=== PATIENT | male | born 1985 | race Caucasian/White ===

== ENCOUNTER 2021-08-10 13:19 | Emergency (ER) | payer OTHER, SELFPAY ==
[2021-08-10 13:25] VITALS: BP 154/91; PULSE 81; RESP 18; TEMP 36.7; O2SAT 98; BMI 31.8
--- NOTE | 2021-08-10 13:32 | DI.RAD.S_ITS ---
PROCEDURE: XR CHEST 1V INDICATIONS: chest pain TECHNIQUE: One view of the chest was acquired. COMPARISON: None. FINDINGS: Surgical changes and devices: None. Lungs and pleura: Lungs are clear. No pleural effusions or pneumothorax. Mediastinum: Mediastinal contours appear normal. Heart size is normal. Bones and chest wall: No suspicious bony lesions. Overlying soft tissues appear unremarkable. IMPRESSION: No acute cardiopulmonary disease. Dictated by: Toro Coelho M.D. on 08/10/2021 at 14:13 Approved by: Toro Coehlo M.D. on 08/10/2021 at 14:13
[2021-08-10 14:04] LABS: Add Manual Diff / Slide Review NO; Basophils Absolute Auto 100 /uL (0-100); Basophils Percent Auto 0.6 % (0-2); Eosinophils Absolute Auto 300 /uL (0-450); Hematocrit 48.8 % (41-53); Hemoglobin 17.8 g/dL (13.5-17.5); Lymphocytes Absolute Auto 1800 /uL (1100-4500); Lymphocytes Percent Auto 19.9 % (25-40); Mean Corpuscular HGB Conc 36.5 % (30-36); Mean Corpuscular Hemoglobin 32.6 PG (26-34); Mean Corpuscular Volume 89.3 fL (80-100); Monocytes Absolute Auto 600 /uL (0-900); Monocytes Percent Auto 6.4 % (3-14); Neutrophils Absolute Auto 6500 /uL (1500-7000); Neutrophils Percent Auto 70.1 % (50-75); Platelet Count 237 X10^3/uL (150-400); Red Blood Cell Count 5.47 X10^6/uL (4.5-5.9); Red Cell Distribution Width 12.8 % (11.6-14.8); White Blood Cell Count 9.2 X10^3/uL (4.5-11.0)
[2021-08-10 14:14] LABS: Alanine Aminotransferase 49 IU/L (<50); Albumin 5.5 g/dL (3.5-5.0); Albumin Globulin Ratio 1.3 (1.0-2.8); Alkaline Phosphatase 77 U/L (38-126); Aspartate Aminotransferase 36 IU/L (17-59); BUN Creatinine Ratio 10.9 (6-22); Bilirubin Total 0.7 mg/dL (0.2-1.3); Blood Urea Nitrogen 10 mg/dL (9-20); Calcium 9.7 mg/dL (8.4-10.2); Carbon Dioxide 26 mmol/L (22-32); Chloride 103 mmol/L (98-107); Creatine Kinase 59 U/L (55-170); Estimated Glomerular Filt Rate > 60.0 mL/min (>60); Globulin 4.4 g/dL (1.7-4.1); Glucose 118 mg/dL (70-100); HEMOLYSIS < 15 (0-50); Lipase 462 U/L (23-300); Magnesium 2.1 mg/dL (1.6-2.3); Sodium 140 mmol/L (137-145)
[2021-08-10 14:23] LABS: Total Protein 9.9 g/dL (6.3-8.2)
[2021-08-10 14:25] LABS: Troponin I < 0.012 ng/mL (0.01-0.034)
--- NOTE | 2021-08-10 15:01 | ED_ITS ---
HPI - Arrhythmia/Palpitations General Chief Complaint: Arrhythmia/Palpitations Stated Complaint: HEART FLUTTERING Time Seen by Provider: 08/10/21 14:42 Source: patient Mode of arrival: Ambulatory History of Present Illness HPI narrative: Patient is a 35-year-old male who states that since last evening and continued until today he has had occasional episodes of feeling like his heart is fluttering. He states that his watch that he is wearing informed him that his heart was beating fast he was having symptoms at the time. Some lighthe adedness. Did not pass out. No chest pain. No shortness of breath. Does have a history of anxiety and he states that the symptoms are causing him to have some anxiety. Related Data Allergies Allergy/AdvReac Type Severity Reaction Status Date / Time No Known Drug Allergies Allergy Verified 08/10/21 13:32 Review of Systems Cardiovascular Cardiovascular: Reports as per HPI and Reports system reviewed and no additional complaints, except as documented Respiratory Respiratory: Reports as per HPI and Reports system reviewed and no additional complaints, except as documented Gastrointestinal Gastrointestinal: Reports system reviewed and no additional complaints, except as documented Musculoskeletal Musculoskeletal: Reports system reviewed and no additional complaints, except as documented Integumentary/Breasts Skin/Breast: Reports system reviewed and no additional complaints, except as documented Hematologic/Lymphatic On Anticoagulants: No Patient History Medical History Anxiety Social History Smoking Status: Former smoker Smoking Status: Former smoker alcohol intake frequency: holidays/special occasions only Substance Use Type: does not use Exam Initial Vital Signs Initial Vital Signs: Vital Signs Temperature 98.1 F 08/10/21 13:25 Pulse Rate 81 08/10/21 13:25 Respiratory Rate 18 08/10/21 13:25 Blood Pressure 154/91 H 08/10/21 13:25 Pulse Oximetry 98 08/10/21 13:25 HENMT Head: normal to inspection and normocephalic Resp Effort & Inspection: normal respiratory effort Auscultation: clear to auscultation bilaterally Cardio Rate: regular rate Rhythm: regular rhythm GI Inspection: normal to inspection Skin General: no rashes or lesions noted Neuro General: patient alert, patient awake, patient oriented x3 and moves all extremities Extrem General: normal to inspection and capillary refill normal Psych Appearance: grossly normal and well kempt Course Orders Ordered: ED Orders 08/10/21 13:32 XR chest 1V Stat 08/10/21 13:41 EKG-12 Lead Stat 08/10/21 13:50 Complete Blood Count AUTO DIFF Stat Comprehensive Metabolic Panel Stat Lipase Stat Magnesium Stat Troponin & CK Cardiac Panel Stat Vital Signs Vital signs: Vital Signs - 8 hr 08/10/21 13:25 08/10/21 15:03 08/10/21 15:05 Temperature 98.1 F Pulse Rate 81 77 78 Respiratory Rate 18 11 L 12 Blood Pressure 154/91 H 169/93 H Pulse Oximetry 98 08/10/21 15:20 08/10/21 15:30 Temperature Pulse Rate 64 69 Respiratory Rate 12 12 Blood Pressure 156/83 H Pulse Oximetry MDM - Arrhythmia/Palpitations Lab Data Attestation: I reviewed the patient's lab results. Result diagrams: 08/10/21 13:50 08/10/21 13:50 Labs: Lab Results 08/10/21 08/10/21 Range/Units 13:50 13:50 WBC 9.2 (4.5-11.0) X10^3/uL RBC 5.47 (4.5-5.9) X10^6/uL Hgb 17.8 H (13.5-17.5) g/dL Hct 48.8 (41-53) % MCV 89.3 (80-100) fL MCH 32.6 (26-34) PG MCHC 36.5 H (30-36) % RDW 12.8 (11.6-14.8) % Plt Count 237 (150-400) X10^3/uL Neut % (Auto) 70.1 (50-75) % Lymph % (Auto) 19.9 L (25-40) % [place] % (Auto) 6.4 (3-14) % Eos % (Auto) 3.0 (2-4) % Baso % (Auto) 0.6 (0-2) % Neut # (Auto) 6500 (0393-2456) /uL Lymph # (Auto) 1800 (2108-3215) /uL [place] # (Auto) 600 (0-900) /uL Eos # (Auto) 300 (0-450) /uL Baso # (Auto) 100 (0-100) /uL Sodium 140 (137-145) mmol/L Potassium 4.0 (3.4-5.1) mmol/L Chloride 103 (98-107) mmol/L Carbon Dioxide 26 (22-32) mmol/L BUN 10 (9-20) mg/dL Creatinine 0.92 (0.66-1.25) mg/dL Estimated GFR > 60.0 (>60) mL/min BUN/Creatinine Ratio 10.9 (6-22) Glucose 118 H (70-100) mg/dL Calcium 9.7 (8.4-10.2) mg/dL Magnesium 2.1 (1.6-2.3) mg/dL Total Bilirubin 0.7 (0.2-1.3) mg/dL AST 36 (17-59) IU/L ALT 49 (<50) IU/L Alkaline Phosphatase 77 (38-126) U/L Total Creatine Kinase 59 (55-170) U/L CK-MB (CK-2) TNP CK-MB (CK-2) Rel Index TNP Troponin I < 0.012 (0.01-0.034) ng/mL Total Protein 9.9 H* (6.3-8.2) g/dL Albumin 5.5 H (3.5-5.0) g/dL Globulin 4.4 H (1.7-4.1) g/dL Albumin/Globulin Ratio 1.3 (1.0-2.8) Lipase 462 H (23-300) U/L Imaging Data Chest x-ray: Radiologist's Impresson: [address] [address] XRay Report Signed Patient: Justino Silver MR#: [id number] : 1985 Acct:[id number] Age/Sex: 35 / M Date of Service: 08/10/21 Loc: ED Accession Number: [id number] ?? Procedure: XR chest 1V Ordering Provider: Justino Richardson D.O. PROCEDURE:? XR CHEST 1V ? INDICATIONS:? chest pain ? TECHNIQUE:? One view of the chest was acquired.? ? COMPARISON:? None. ? FINDINGS:? ? Surgical changes and devices:? None.? ? Lungs and pleura:? Lungs are clear.? No pleural effusions or pneumothorax.? ? Mediastinum:? Mediastinal contours appear normal.? Heart size is normal.? ? Bones and chest wall:? No suspicious bony lesions.? Overlying soft tissues appear unremarkable.? ? IMPRESSION:? No acute cardiopulmonary disease. ? ? Dictated by: Toro Coelho M.D. on 08/10/2021 at 14:13 ? ? Approved by: Toro Coelho M.D. on 08/10/2021 at 14:13? ECG Data Attestation: I personally reviewed and interpreted this ECG as follows: Interpretation: Sinus rhythm Ventricular rate 89 Normal axis Normal QRS Normal QTC No ST T wave changes MDM Narrative Medical decision making narrative: Patient has had occasional PVCs however these do not seem to be associated with his symptoms. He did have symptoms while he was on the monitor and review did not show any ectopy at the time. His EKG is unremarkable. Labs unremarkable. Chest x-ray is unremarkable. Discussed with him that he needs to contact his primary doctor to discuss follow-up and a Holter monitor. He was given return precautions. He expressed understanding and agreement. Discharge Plan Departure Patient Disposition: Home Clinical Impression: Palpitations Instructions: Arrhythmias Activity Restrictions/Additional Instructions: I recommend that you continue to take all of your medications as directed. Cont act your primary doctor for a follow-up. Return to the emergency department for any new or worsening symptoms.
[2021-08-10 15:03] VITALS: PULSE 77; RESP 11
[2021-08-10 15:05] VITALS: BP 169/93; PULSE 78; RESP 12
[2021-08-10 15:20] VITALS: BP 156/83; PULSE 64; RESP 12
[2021-08-10 15:30] VITALS: PULSE 69; RESP 12
== END 2021-08-10 15:33 | disposition home or self-care (01) ==
PROVIDERS: Emergency Provider Emergency Medicine
DX: R00.2 Palpitations (principal); Z87.891 Personal history of nicotine dependence
CPT/HCPCS: 36415; 71045; 80053; 82550; 83690; 83735; 84484; 85025; 93005; 99284

== ENCOUNTER 2021-08-15 13:56 | Emergency (ER) | payer OTHER, SELFPAY ==
[2021-08-15 14:01] VITALS: BP 154/88; PULSE 102; RESP 22; TEMP 36.6; O2SAT 99; BMI 32.5
--- NOTE | 2021-08-15 14:33 | ED_ITS ---
HPI - Arrhythmia/Palpitations <Darlene Ortega [facility] - Last Filed: 08/15/21 18:51> General Chief Complaint: Arrhythmia/Palpitations Stated Complaint: Heart problems, thinks will pass out Time Seen by Provider: 08/15/21 14:11 Mode of arrival: Family Vehicle History of Present Illness HPI narrative: 35-year-old male presents to the emergency department complaining of palpitations for the last 2 weeks, BPPV, dizziness, and panic when he feels these symptoms. He states he has not been able to get into see his primary care provider Dr. Dennis yet, he was seen in the emergency department 5 days ago for palpitations, only pertinent findings on his workup appears to be mild dehydration, and an elevated lipase of 462. Patient states that he has a history of elevated lipase, denies any history of pancreatitis, denies any history of diabetes cardiac disease, hypertension or kidney disease. He states that he has some lightheadedness.? Did not pass out.? No chest pain.? No shortness of breath.? Does have a history of anxiety and he states that the symptoms are causing him to have some anxiety. 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 Patient denies taking any Flomax for his upper respiratory congestion, he has been taking citalopram 20 since his primary care provider dea stick, he has only taken 1 or 2 doses of meclizine for his BPPV. He states that he has not seen anybody from ENT or vestibular physical therapy to help him with this. Related Data Previous Rx's Medication Instructions Recorded fluticasone propionate 50 1 spray INTRANASAL DAILY #16 g 08/15/21 mcg/actuation nasal spray,suspension (Flonase Allergy Relief) hydroxyzine HCl 10 mg tablet 10 mg PO TID PRN #20 tab 08/15/21 lorazepam 1 mg tablet 1 mg PO DAILY PRN #10 tab 08/15/21 meclizine 25 mg tablet 25 mg PO DAILY PRN #20 tab 08/15/21 methylprednisolone 4 mg tablets in See Rx Instructions PO .COMPLEX 08/15/21 a dose pack (Methylpred DP) #21 ea omeprazole magnesium 20 mg 20 mg PO DAILY #30 tab 08/15/21 tablet,delayed release (Prilosec OTC) Allergies Allergy/AdvReac Type Severity Reaction Status Date / Time No Known Drug Allergies Allergy Verified 08/15/21 14:04 Review of Systems <ESPERANZA Montes De Oca - Last Filed: 08/15/21 18:51> Review of Systems Narrative: General: denies fever, chills Head/Neck: denies headache, neck pain Eyes: denies visual changes, eye pain Cardio: denies chest pain, endorses palpitations at various times, today was wh en he was sitting at his desk, he denies any syncope or feeling faint Respiratory: denies shortness of breath, cough GI: denies abdominal pain, nausea, vomiting, or diarrhea : denies dysuria, hematuria MSK: denies joint pain, muscle weakness Skin: denies rash, itching Neuro: denies numbness, tingling Patient History <ESPERANZA Montes De Oca - Last Filed: 08/15/21 18:51> Medical History Anxiety Social History Smoking Status: Former smoker Smoking Status: Former smoker alcohol intake frequency: holidays/special occasions only Substance Use Type: does not use Exam <ESPERANZA Montes De Oca - Last Filed: 08/15/21 18:51> Narrative Exam Narrative: Independently reviewed vitals signs and nursing notes. General: cooperative, comfortable, in no acute distress, well developed and well groomed Head: atraumatic, symmetrical facial expressions Neck: supple, atraumatic, without lymphadenopathy. Eyes: pupils equal round and reactive, EOMI, conjunctiva normal Nose: nares patent, no rhinorrhea Mouth/Throat: uvula midline, moist mucus membranes Cardiovascular: regular rate and rhythm, S1-S2, no extra beats, no PVCs or PACs noted on alarm security or surveillance monitor, no peripheral edema, warm extremities Respiratory: normal effort, able to speak in complete sentences, no audible wheezing, stridor, or rales. No retractions or tachypnea. GI: abdomen soft, nontender to palpation, nondistended, no masses, no exquisite tenderness with exam, without guarding or rebound. MSK: moves all extremities, ambulatory w/steady gait, neurovascularly intact, no weakness Skin: brisk capillary refill, no rash, no erythema Neuro: normal speech and cognition, A&O x3, normal tone Psych: mental status is grossly normal, he is anxious, congruent mood, normal affect, pleasant and cooperative Initial Vital Signs Initial Vital Signs: Vital Signs Temperature 98 F 08/15/21 14:01 Pulse Rate 102 H 08/15/21 14:01 Respiratory Rate 22 08/15/21 14:01 Blood Pressure 154/88 H 08/15/21 14:01 Pulse Oximetry 99 08/15/21 14:01 <Justino Richardson DO - Last Filed: 08/16/21 07:09> Initial Vital Signs Initial Vital Signs: Vital Signs Temperature 98 F 08/15/21 14:01 Pulse Rate 102 H 08/15/21 14:01 Respiratory Rate 08/15/21 14:01 Blood Pressure 154/88 H 08/15/21 14:01 Pulse Oximetry 99 08/15/21 14:01 Course <ESPERANZA Montes De Oca - Last Filed: 08/15/21 18:51> Orders Ordered: Discontinued Medications Sodium Chloride (Normal Saline 0.9%) 1,000 mls @ 1,000 mls/hr IV BOLUS ONE Stop: 08/15/21 15:13 Last Infusion: 08/15/21 16:05 Dose: 0 mls/hr Documented by: Admin: 08/15/21 14:53 Dose: 1,000 mls/hr Documented by: AMY Lorazepam (Lorazepam 0.5 Mg Tablet) 1 mg PO NOW ONE Stop: 08/15/21 14:13 Last Admin: 08/15/21 14:53 Dose: 1 mg Documented by: AMY Meclizine HCl (Meclizine Hcl 12.5 Mg Tablet) 25 mg PO NOW ONE Stop: 08/15/21 14:34 Last Admin: 08/15/21 14:53 Dose: 25 mg Documented by: AMY Vital Signs Vital signs: Vital Signs - 8 hr 08/15/21 14:01 08/15/21 15:47 08/15/21 16:06 Temperature 98 F Pulse Rate 102 H 69 62 Respiratory Rate 22 18 18 Blood Pressure 154/88 H 122/73 Pulse Oximetry 99 99 <Justino Richardson DO - Last Filed: 08/16/21 07:09> Orders Ordered: Discontinued Medications Sodium Chloride (Normal Saline 0.9%) 1,000 mls @ 1,000 mls/hr IV BOLUS ONE Stop: 08/15/21 15:13 Last Infusion: 08/15/21 16:05 Dose: 0 mls/hr Documented by: Admin: 08/15/21 14:53 Dose: 1,000 mls/hr Documented by: AMY Lorazepam (Lorazepam 0.5 Mg Tablet) 1 mg PO NOW ONE Stop: 08/15/21 14:13 Last Admin: 08/15/21 14:53 Dose: 1 mg Documented by: AMY Meclizine HCl (Meclizine Hcl 12.5 Mg Tablet) 25 mg PO NOW ONE Stop: 08/15/21 14:34 Last Admin: 08/15/21 14:53 Dose: 25 mg Documented by: AMY Vital Signs Vital signs: Vital Signs - 8 hr 08/15/21 14:01 08/15/21 15:47 08/15/21 16:06 Temperature 98 F Pulse Rate 102 H 69 62 Respiratory Rate 22 18 18 Blood Pressure 154/88 H 122/73 Pulse Oximetry 99 99 MDM - Arrhythmia/Palpitations <ESPERANZA Montes De Oca - Last Filed: 08/15/21 18:51> Lab Data Result diagrams: 08/15/21 14:38 08/15/21 14:38 Labs: Lab Results 08/15/21 08/15/21 08/15/21 Range/Units 14:38 14:38 14:38 WBC 7.4 (4.5-11.0) X10^3/uL RBC 5.11 (4.5-5.9) X10^6/uL Hgb 16.4 (13.5-17.5) g/dL Hct 45.7 (41-53) % MCV 89.4 (80-100) fL MCH 32.1 (26-34) PG MCHC 35.9 (30-36) % RDW 12.9 (11.6-14.8) % Plt Count 201 (150-400) X10^3/uL Neut % (Auto) 63.4 (50-75) % Lymph % (Auto) 24.9 L (25-40) % Bailey % (Auto) 6.9 (3-14) % Eos % (Auto) 3.9 (2-4) % Baso % (Auto) 0.9 (0-2) % Neut # (Auto) 4700 (4764-5120) /uL Lymph # (Auto) 1900 (3909-8834) /uL Bailey # (Auto) 500 (0-900) /uL Eos # (Auto) 300 (0-450) /uL Baso # (Auto) 100 (0-100) /uL Sodium 138 (137-145) mmol/L Potassium 3.8 (3.4-5.1) mmol/L Chloride 104 (98-107) mmol/L Carbon Dioxide 22 (22-32) mmol/L BUN 10 (9-20) mg/dL Creatinine 0.83 (0.66-1.25) mg/dL Estimated GFR > 60.0 (>60) mL/min BUN/Creatinine Ratio 12.0 (6-22) Glucose 108 H (70-100) mg/dL Calcium 9.4 (8.4-10.2) mg/dL Total Bilirubin 0.7 (0.2-1.3) mg/dL AST 29 (17-59) IU/L ALT 37 (<50) IU/L Alkaline Phosphatase 74 (38-126) U/L Total Creatine Kinase 57 (55-170) U/L CK-MB (CK-2) TNP CK-MB (CK-2) Rel Index TNP Troponin I < 0.012 (0.01-0.034) ng/mL Total Protein 8.6 H (6.3-8.2) g/dL Albumin 4.9 (3.5-5.0) g/dL Globulin 3.7 (1.7-4.1) g/dL Albumin/Globulin Ratio 1.3 (1.0-2.8) Lipase 173 D (23-300) U/L Urine Color Urine Appearance Urine pH (4.5-8.0) Ur Specific Clyde (1.000-1.035) Urine Protein (Negative) Urine Glucose (UA) (Negative) g/dL Urine Ketones (NEGATIVE) Urine Occult Blood (Negative) Urine Nitrate (Negative) Urine Bilirubin (NEGATIVE) Urine Urobilinogen (0.2) E.U./dL Ur Leukocyte Esterase (NEGATIVE) Urine RBC (0-5/HPF) Urine WBC (0-5/HPF) Ur Squamous Epith Cells (0-5/HPF) Urine Bacteria (None) Ur Culture Indicated? U Opiates 300ng/mL cut (Negative) Ur Oxycodone Screen (Negative) Urine Methadone Screen (Negative) Ur Barbiturates Screen (Negative) U Tricyclic Antidepress (Negative) Ur Phencyclidine Scrn (Negative) Ur Amphetamines Screen (Negative) U Methamphetamines Scrn (Negative) Ur MDMA Scrn (Ecstasy) (Negative) U Benzodiazepines Scrn (Negative) Urine Cocaine Screen (Negative) U Marijuana (THC) Screen (Negative) 08/15/21 08/15/21 Range/Units 15:38 15:38 WBC (4.5-11.0) X10^3/uL RBC (4.5-5.9) X10^6/uL Hgb (13.5-17.5) g/dL Hct (41-53) % MCV (80-100) fL MCH (26-34) PG MCHC (30-36) % RDW (11.6-14.8) % Plt Count (150-400) X10^3/uL Neut % (Auto) (50-75) % Lymph % (Auto) (25-40) % Bailey % (Auto) (3-14) % Eos % (Auto) (2-4) % Baso % (Auto) (0-2) % Neut # (Auto) (9498-1839) /uL Lymph # (Auto) (6000-5381) /uL Bailey # (Auto) (0-900) /uL Eos # (Auto) (0-450) /uL Baso # (Auto) (0-100) /uL Sodium (137-145) mmol/L Potassium (3.4-5.1) mmol/L Chloride (98-107) mmol/L Carbon Dioxide (22-32) mmol/L BUN (9-20) mg/dL Creatinine (0.66-1.25) mg/dL Estimated GFR (>60) mL/min BUN/Creatinine Ratio (6-22) Glucose (70-100) mg/dL Calcium (8.4-10.2) mg/dL Total Bilirubin (0.2-1.3) mg/dL AST (17-59) IU/L ALT (<50) IU/L Alkaline Phosphatase (38-126) U/L Total Creatine Kinase (55-170) U/L CK-MB (CK-2) CK-MB (CK-2) Rel Index Troponin I (0.01-0.034) ng/mL Total Protein (6.3-8.2) g/dL Albumin (3.5-5.0) g/dL Globulin (1.7-4.1) g/dL Albumin/Globulin Ratio (1.0-2.8) Lipase (23-300) U/L Urine Color Yellow Urine Appearance Clear Urine pH 7.0 (4.5-8.0) Ur Specific Clyde <=1.005 (1.000-1.035) Urine Protein Negative (Negative) Urine Glucose (UA) Negative (Negative) g/dL Urine Ketones Trace H (NEGATIVE) Urine Occult Blood Negative (Negative) Urine Nitrate Negative (Negative) Urine Bilirubin Negative (NEGATIVE) Urine Urobilinogen 0.2 (0.2) E.U./dL Ur Leukocyte Esterase Trace H (NEGATIVE) Urine RBC None seen (0-5/HPF) Urine WBC None seen (0-5/HPF) Ur Squamous Epith Cells None seen (0-5/HPF) Urine Bacteria None seen (None) Ur Culture Indicated? Cult not indicated U Opiates 300ng/mL cut Negative (Negative) Ur Oxycodone Screen Negative (Negative) Urine Methadone Screen Negative (Negative) Ur Barbiturates Screen Negative (Negative) U Tricyclic Antidepress Negative (Negative) Ur Phencyclidine Scrn Negative (Negative) Ur Amphetamines Screen Negative (Negative) U Methamphetamines Scrn Negative (Negative) Ur MDMA Scrn (Ecstasy) Negative (Negative) U Benzodiazepines Scrn Negative (Negative) Urine Cocaine Screen Negative (Negative) U Marijuana (THC) Screen Negative (Negative) ECG Data Interpretation: EKG reviewed by myself and Dr. Richardson and reveals normal sinus rhythm at [68] bpm with regular axis and intervals. No STEMI, ST segment changes, arrhythmia, or acute ischemic changes. MDM Narrative Medical decision making narrative: This is a 35-year-old male who presents to the emergency department for palp itations and anxiety, and ongoing dizziness from his BPPV. He states he has seasonal allergies, and has had congestion, symptoms of this, and continues to have dizziness related to his middle ear effusion on the right. He states he saw his primary care provider who increased his citalopram from 10-20 mg, he states this made him feel poorly for approximately 1 week. Today patient states that he had an anxiety attack while he was sitting at his desk today, he had the sensation of palpations, he watched his heart rhythm on his apple watch and thought that he was having an abnormal rhythm. Patient's EKG is normal sinus rhythm, without any ectopy, no ectopy visualized on alarm security or surveillance monitor while he was here either, no QT prolongation, no prolonged intervals, no ST changes. Patient was quite anxious during his emergency department visit, discussed feelings of panic attacks over the last few months. He states that he has been overly exhausted since having COVID in May. 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 Patient also endorses history of ADHD, he is not currently on any medication for this, his only medication is citalopram which is likely under treating his ADHD and anxiety. Patient also take Lunesta at nighttime, this is likely helpful. Patient endorses a history of heartburn, has not been taking any medication for this. He was given a prescription for omeprazole, fluticasone for seasonal allergy symptoms he endorsed, hydroxyzine and lorazepam for anxiety out of proportion, meclizine daily for his BPPV until he can follow up with vestibular physical therapy, and a Medrol Dosepak for his upper respiratory symptoms. Patient understands to follow-up closely with his primary care provider about these issues, he was reassured that his symptoms do not appear to be a dangerous cardiac complication. He does not have any leukocytosis, urine drug screen was negative, UA showed a trace of ketones and a trace of leukocytes for dehydr ation. Chest x-ray from 5 days ago did not show any acute abnormality. Patient does not endorse any new cardiopulmonary symptoms. Patient is appropriate and amenable to discharge home. Vital signs are stable on repeat examination is unremarkable. Patient has been informed of results. Patient has been given strict return to ER precautions for any new or worsening symptoms. Patient understands to follow up closely with outpatient providers as instructed. Patient understands plan and agrees to discharge home. All questions and concerns answered at this time. <Justino Richardson, - Last Filed: 08/16/21 07:09> Lab Data Labs: Lab Results 03/08/15/21 08/15/21 Range/Units 14:38 14:38 14:38 WBC 7.4 (4.5-11.0) X10^3/uL RBC 5.11 (4.5-5.9) X10^6/uL Hgb 16.4 (13.5-17.5) g/dL Hct 45.7 (41-53) % MCV 89.4 (80-100) fL MCH 32.1 (26-34) PG MCHC 35.9 (30-36) % RDW 12.9 (11.6-14.8) % Plt Count 201 (150-400) X10^3/uL Neut % (Auto) 63.4 (50-75) % Lymph % (Auto) 24.9 L (25-40) % Bailey % (Auto) 6.9 (3-14) % Eos % (Auto) 3.9 (2-4) % Baso % (Auto) 0.9 (0-2) % Neut # (Auto) 4700 (6625-3098) /uL Lymph # (Auto) 1900 (2923-0561) /uL Bailey # (Auto) 500 (0-900) /uL Eos # (Auto) 300 (0-450) /uL Baso # (Auto) 100 (0-100) /uL Sodium 138 (137-145) mmol/L Potassium 3.8 (3.4-5.1) mmol/L Chloride 104 (98-107) mmol/L Carbon Dioxide 22 (22-32) mmol/L BUN 10 (9-20) mg/dL Creatinine 0.83 (0.66-1.25) mg/dL Estimated GFR > 60.0 (>60) mL/min BUN/Creatinine Ratio 12.0 (6-22) Glucose 108 H (70-100) mg/dL Calcium 9.4 (8.4-10.2) mg/dL Total Bilirubin 0.7 (0.2-1.3) mg/dL AST 29 (17-59) IU/L ALT 37 (<50) IU/L Alkaline Phosphatase 74 (38-126) U/L Total Creatine Kinase 57 (55-170) U/L CK-MB (CK-2) TNP CK-MB (CK-2) Rel Index TNP Troponin I < 0.012 (0.01-0.034) ng/mL Total Protein 8.6 H (6.3-8.2) g/dL Albumin 4.9 (3.5-5.0) g/dL Globulin 3.7 (1.7-4.1) g/dL Albumin/Globulin Ratio 1.3 (1.0-2.8) Lipase 173 D (23-300) U/L Urine Color Urine Appearance Urine pH (4.5-8.0) Ur Specific Clyde (1.000-1.035) Urine Protein (Negative) Urine Glucose (UA) (Negative) g/dL Urine Ketones (NEGATIVE) Urine Occult Blood (Negative) Urine Nitrate (Negative) Urine Bilirubin (NEGATIVE) Urine Urobilinogen (0.2) E.U./dL Ur Leukocyte Esterase (NEGATIVE) Urine RBC (0-5/HPF) Urine WBC (0-5/HPF) Ur Squamous Epith Cells (0-5/HPF) Urine Bacteria (None) Ur Culture Indicated? U Opiates 300ng/mL cut (Negative) Ur Oxycodone Screen (Negative) Urine Methadone Screen (Negative) Ur Barbiturates Screen (Negative) U Tricyclic Antidepress (Negative) Ur Phencyclidine Scrn (Negative) Ur Amphetamines Screen (Negative) U Methamphetamines Scrn (Negative) Ur MDMA Scrn (Ecstasy) (Negative) U Benzodiazepines Scrn (Negative) Urine Cocaine Screen (Negative) U Marijuana (THC) Screen (Negative) 08/15/21 08/15/21 Range/Units 15:38 15:38 WBC (4.5-11.0) X10^3/uL RBC (4.5-5.9) X10^6/uL Hgb (13.5-17.5) g/dL Hct (41-53) % MCV (80-100) fL MCH (26-34) PG MCHC (30-36) % RDW (11.6-14.8) % Plt Count (150-400) X10^3/uL Neut % (Auto) (50-75) % Lymph % (Auto) (25-40) % Bailey % (Auto) (3-14) % Eos % (Auto) (2-4) % Baso % (Auto) (0-2) % Neut # (Auto) (2601-2912) /uL Lymph # (Auto) (8904-4682) /uL Bailey # (Auto) (0-900) /uL Eos # (Auto) (0-450) /uL Baso # (Auto) (0-100) /uL Sodium (137-145) mmol/L Potassium (3.4-5.1) mmol/L Chloride (98-107) mmol/L Carbon Dioxide (22-32) mmol/L BUN (9-20) mg/dL Creatinine (0.66-1.25) mg/dL Estimated GFR (>60) mL/min BUN/Creatinine Ratio (6-22) Glucose (70-100) mg/dL Calcium (8.4-10.2) mg/dL Total Bilirubin (0.2-1.3) mg/dL AST (17-59) IU/L ALT (<50) IU/L Alkaline Phosphatase (38-126) U/L Total Creatine Kinase (55-170) U/L CK-MB (CK-2) CK-MB (CK-2) Rel Index Troponin I (0.01-0.034) ng/mL Total Protein (6.3-8.2) g/dL Albumin (3.5-5.0) g/dL Globulin (1.7-4.1) g/dL Albumin/Globulin Ratio (1.0-2.8) Lipase (23-300) U/L Urine Color Yellow Urine Appearance Clear Urine pH 7.0 (4.5-8.0) Ur Specific Clyde <=1.005 (1.000-1.035) Urine Protein Negative (Negative) Urine Glucose (UA) Negative (Negative) g/dL Urine Ketones Trace H (NEGATIVE) Urine Occult Blood Negative (Negative) Urine Nitrate Negative (Negative) Urine Bilirubin Negative (NEGATIVE) Urine Urobilinogen 0.2 (0.2) E.U./dL Ur Leukocyte Esterase Trace H (NEGATIVE) Urine RBC None seen (0-5/HPF) Urine WBC None seen (0-5/HPF) Ur Squamous Epith Cells None seen (0-5/HPF) Urine Bacteria None seen (None) Ur Culture Indicated? Cult not indicated U Opiates 300ng/mL cut Negative (Negative) Ur Oxycodone Screen Negative (Negative) Urine Methadone Screen Negative (Negative) Ur Barbiturates Screen Negative (Negative) U Tricyclic Antidepress Negative (Negative) Ur Phencyclidine Scrn Negative (Negative) Ur Amphetamines Screen Negative (Negative) U Methamphetamines Scrn Negative (Negative) Ur MDMA Scrn (Ecstasy) Negative (Negative) U Benzodiazepines Scrn Negative (Negative) Urine Cocaine Screen Negative (Negative) U Marijuana (THC) Screen Negative (Negative) Discharge Plan Departure Patient Disposition: Home Clinical Impression: Palpitations, Anxiety Benign paroxysmal positional vertigo Qualifiers: Laterality: unspecified laterality Qualified Code(s): H81.10 - Benign paroxysmal vertigo, unspecified ear Instructions: Attention Deficit Disorder (Alternative Therapy), Arrhythmias, Anxiety Disorders, Benign Paroxysmal Positional Vertigo Activity Restrictions/Additional Instructions: *You have been diagnosed with palpitations without any dangerous causes for your symptoms identified today. Your lab work overall is reassuring. Please follow-up with Dr. Dennis and get your soonest available appointment to get a referral for vestibular physical therapy, address your epigastric pain/palpitations, ADHD and anxiety and ask for a neuropsych evaluation. Please discuss your current medications, what works for you, which is not working for you. You can follow-up with ear nose and throat if you are unable to get into vestibular physical therapy. I have put a referral for [facility], you make call and make an appointment for a counselor, this may be helpful as your going through these changes. Thank you for trusting us with your care, sorry for your multiple symptoms. You most likely have post COVID syndrome. This in cause long ongoing symptoms of fatigue. This may also be ADHD/anxiety, it will be great to get an evaluation. The book I discussed was Rewire Your Anxious Brain. I wish you the best. *What to do: *Please continue to take your regular medications as directed. [x] [facility] [ ] New medication written as a paper prescription [ ] No new medications given *Please follow up with your primary care provider in 2-3 days, call for an appointment. Let them know you were seen in the Emergency Department and that we asked that you be seen for follow-up. We will electronically transmit a record of today's note if your PCP is in our system *If you do not have a primary care provider please contact [phone] to establish care with one of [facility] primary care providers. *Return to Emergency Department if you should have any new, worsening or concerning symptoms, such as [fever greater than 101F, chills, worsening pain, persistent vomiting or other bothersome symptoms] Prescriptions: New fluticasone propionate [Flonase Allergy Relief] 50 mcg/actuation spray,suspension 1 spray intranasal DAILY Qty: 16 0RF Rx Instructions: administer into each nostril lorazepam 1 mg tablet 1 mg PO DAILY PRN (Reason: anxiety) Qty: 10 0RF hydroxyzine HCl 10 mg tablet 10 mg PO TID PRN (Reason: anxiety) Qty: 20 0RF methylprednisolone [Methylpred DP] 4 mg tablets,dose pack See Rx Instructions PO .COMPLEX Qty: 21 0RF Rx Instructions: orally per package directions meclizine 25 mg tablet 25 mg PO DAILY PRN (Reason: dizziness) Qty: 20 0RF omeprazole magnesium [Prilosec OTC] 20 mg tablet,delayed release (DR/EC) 20 mg PO DAILY Qty: 30 0RF Referrals: [facility] [Provider Group] Tim Sanchez MD [Physician] - (BPPV) Elba Dennis MD [Primary Care Provider] - <Justino Richardson, - Last Filed: 08/16/21 07:09> Cosign ED Attending Cosignature Attestation: Dr Richardson Co-Sign Statement: I was available for consultation during this patient's emergency department visit. This chart is signed by myself for administrative purposes only. I did not have direct contact with this patient during this visit. They were seen independently by the APC.
[2021-08-15 14:48] LABS: Add Manual Diff / Slide Review NO; Basophils Absolute Auto 100 /uL (0-100); Basophils Percent Auto 0.9 % (0-2); Eosinophils Absolute Auto 300 /uL (0-450); Eosinophils Percent Auto 3.9 % (2-4); Hematocrit 45.7 % (41-53); Hemoglobin 16.4 g/dL (13.5-17.5); Lymphocytes Absolute Auto 1900 /uL (1100-4500); Lymphocytes Percent Auto 24.9 % (25-40); Mean Corpuscular HGB Conc 35.9 % (30-36); Mean Corpuscular Hemoglobin 32.1 PG (26-34); Mean Corpuscular Volume 89.4 fL (80-100); Monocytes Absolute Auto 500 /uL (0-900); Monocytes Percent Auto 6.9 % (3-14); Neutrophils Absolute Auto 4700 /uL (1500-7000); Neutrophils Percent Auto 63.4 % (50-75); Platelet Count 201 X10^3/uL (150-400); Red Blood Cell Count 5.11 X10^6/uL (4.5-5.9); Red Cell Distribution Width 12.9 % (11.6-14.8); White Blood Cell Count 7.4 X10^3/uL (4.5-11.0)
[2021-08-15] MEDS: SODIUM CHLORIDE 0.9% 1,000 ML 1000 ML IV (14:53)
[2021-08-15] MEDS: MECLIZINE HCL 12.5 MG TABLET 25 MG PO (14:53)
[2021-08-15] MEDS: LORazepam 0.5 MG TABLET 1 MG PO (14:53)
[2021-08-15 15:01] LABS: Creatine Kinase 57 U/L (55-170); Lipase 173 U/L (23-300)
[2021-08-15 15:04] LABS: Alanine Aminotransferase 37 IU/L (<50); Albumin 4.9 g/dL (3.5-5.0); Albumin Globulin Ratio 1.3 (1.0-2.8); Alkaline Phosphatase 74 U/L (38-126); Aspartate Aminotransferase 29 IU/L (17-59); Bilirubin Total 0.7 mg/dL (0.2-1.3); Blood Urea Nitrogen 10 mg/dL (9-20); Calcium 9.4 mg/dL (8.4-10.2); Carbon Dioxide 22 mmol/L (22-32); Chloride 104 mmol/L (98-107); Estimated Glomerular Filt Rate > 60.0 mL/min (>60); Globulin 3.7 g/dL (1.7-4.1); Glucose 108 mg/dL (70-100); HEMOLYSIS < 15 (0-50); Potassium 3.8 mmol/L (3.4-5.1); Sodium 138 mmol/L (137-145); Total Protein 8.6 g/dL (6.3-8.2)
[2021-08-15 15:13] LABS: Troponin I < 0.012 ng/mL (0.01-0.034)
[2021-08-15 15:41] LABS: Appearance Urine UA CLEAR; Bilirubin Urine UA NEGATIVE (NEGATIVE); Color Urine UA YELLOW; Glucose Urine UA NEGATIVE (Negative); Ketones Urine UA TRACE (NEGATIVE); Leukocyte Esterase Urine UA TRACE (NEGATIVE); Nitrite Urine UA NEGATIVE (Negative); Occult Blood Urine UA NEGATIVE (Negative); Protein Urine UA NEGATIVE (Negative); Specific Gravity Urine UA <=1.005 (1.000-1.035); Urobilinogen Urine UA 0.2 E.U./dL (0.2)
[2021-08-15 15:47] VITALS: PULSE 69; RESP 18
[2021-08-15 15:47] LABS: UR Morphine/Opiate cutoff 300 Negative (Negative); Ur Creatinine Normal (Normal); Ur Specific Gravity Normal (Normal); Urine Amphetamines Negative (Negative); Urine Barbiturates Negative (Negative); Urine Benzodiazepines Negative (Negative); Urine Cocaine Negative (Negative); Urine MDMA Negative (Negative); Urine Methadone Negative (Negative); Urine Methamphetamines Negative (Negative); Urine Oxycodone Negative (Negative); Urine Phencyclidine Negative (Negative); Urine Tetrahydrocannabinol Negative (Negative); Urine Tricyclic Antidepressant Negative (Negative); Urine pH Normal (Normal)
[2021-08-15 16:04] LABS: Bacteria Urine None Seen; Culture Indicated Urine Cult Not Indicated; RBC Urine None Seen (0-5/HPF); Squamous Epithelial Cell Urine None Seen (0-5/HPF); WBC Urine None Seen (0-5/HPF)
[2021-08-15 16:06] VITALS: BP 122/73; PULSE 62; RESP 18; O2SAT 99
--- NOTE | 2021-08-18 10:52 | PC.NURSE ---
Dr Dennis office called to report this is not there pt.
== END 2021-08-15 16:25 | disposition home or self-care (01) ==
PROVIDERS: Emergency Provider Nurse Practitioner Critical Care Medicine; PCP Dermatology MOHS-Micrographic Surgery
DX: H81.11 Benign paroxysmal vertigo, right ear (principal); R00.2 Palpitations; F41.9 Anxiety disorder, unspecified; E86.0 Dehydration
CPT/HCPCS: 36415; 80053; 80305; 81001; 82550; 83690; 84484; 85025; 93005; 96360; 99284

== ENCOUNTER 2021-12-15 14:31 | Emergency (ER) | payer OTHER, SELFPAY ==
[2021-12-15 14:56] VITALS: BP 141/84; PULSE 80; RESP 20; TEMP 37; O2SAT 99; BMI 31.1
--- NOTE | 2021-12-15 15:05 | DI.RAD.S_ITS ---
PROCEDURE: XR CHEST 1V INDICATIONS: chest pain TECHNIQUE: One view of the chest was acquired. COMPARISON: [facility], CR, XR CHEST 1V, 08/10/2021, 13:44. FINDINGS: Surgical changes and devices: None. Lungs and pleura: Lungs are clear. No pleural effusions or pneumothorax. Mediastinum: Mediastinal contours appear normal. Heart size is normal. Bones and chest wall: No suspicious bony lesions. Overlying soft tissues appear unremarkable. IMPRESSION: No acute cardiopulmonary abnormality. Dictated by: Mendez Luevano M.D. on 12/15/2021 at 15:51 Approved by: Mendez Luevano M.D. on 12/15/2021 at 15:53
[2021-12-15 15:37] LABS: Add Manual Diff / Slide Review NO; Basophils Absolute Auto 100 /uL (0-100); Basophils Percent Auto 0.7 % (0-2); Eosinophils Absolute Auto 300 /uL (0-450); Hemoglobin 16.8 g/dL (13.5-17.5); Lymphocytes Absolute Auto 1700 /uL (1100-4500); Lymphocytes Percent Auto 18.7 % (25-40); Mean Corpuscular HGB Conc 36.4 % (30-36); Mean Corpuscular Hemoglobin 32.3 PG (26-34); Mean Corpuscular Volume 88.7 fL (80-100); Monocytes Absolute Auto 700 /uL (0-900); Monocytes Percent Auto 7.3 % (3-14); Neutrophils Absolute Auto 6400 /uL (1500-7000); Neutrophils Percent Auto 70.3 % (50-75); Platelet Count 216 X10^3/uL (150-400); Red Blood Cell Count 5.19 X10^6/uL (4.5-5.9); Red Cell Distribution Width 12.8 % (11.6-14.8); White Blood Cell Count 9.1 X10^3/uL (4.5-11.0)
[2021-12-15 15:49] LABS: Alanine Aminotransferase 31 IU/L (<50); Albumin 4.9 g/dL (3.5-5.0); Albumin Globulin Ratio 1.3 (1.0-2.8); Alkaline Phosphatase 76 U/L (38-126); Aspartate Aminotransferase 31 IU/L (17-59); Bilirubin Total 0.9 mg/dL (0.2-1.3); Blood Urea Nitrogen 12 mg/dL (9-20); Calcium 9.1 mg/dL (8.4-10.2); Carbon Dioxide 22 mmol/L (22-32); Chloride 101 mmol/L (98-107); Creatine Kinase 95 U/L (55-170); Estimated Glomerular Filt Rate > 60 mL/min (>60); Globulin 3.9 g/dL (1.7-4.1); Glucose 96 mg/dL (70-100); HEMOLYSIS < 15 (0-50); Lipase 217 U/L (23-300); Magnesium 1.9 mg/dL (1.6-2.3); Potassium 3.8 mmol/L (3.4-5.1); Sodium 138 mmol/L (137-145); Total Protein 8.8 g/dL (6.3-8.2)
[2021-12-15 16:00] LABS: Troponin I < 0.012 ng/mL (0.01-0.034)
--- NOTE | 2021-12-15 18:27 | ED_ITS ---
HPI - Chest Pain General Chief Complaint: Chest Pain Stated Complaint: Chest pains, Dizziness, hands and feet numb Time Seen by Provider: 12/15/21 18:26 Related Data Previous Rx's Medication Instructions Recorded fluticasone propionate 50 1 spray intranasal DAILY #16 grams 08/15/21 mcg/actuation nasal spray,suspension (Flonase Allergy Relief) hydroxyzine HCl 10 mg tablet 10 mg PO TID PRN anxiety #20 tabs 08/15/21 lorazepam 1 mg tablet 1 mg PO DAILY PRN anxiety #10 tabs 08/15/21 meclizine 25 mg tablet 25 mg PO DAILY PRN dizziness #20 08/15/21 tabs methylprednisolone 4 mg tablets in See Rx Instructions PO .COMPLEX 08/15/21 a dose pack (Methylpred DP) #21 ea omeprazole magnesium 20 mg 20 mg PO DAILY #30 tabs 08/15/21 tablet,delayed release (Prilosec OTC) Allergies Allergy/AdvReac Type Severity Reaction Status Date / Time No Known Drug Allergies Allergy Verified 12/15/21 15:04 Patient History Medical History Anxiety Social History Smoking Status: Former smoker Smoking Status: Former smoker alcohol intake frequency: holidays/special occasions only Substance Use Type: does not use Exam Initial Vital Signs Initial Vital Signs: Vital Signs Temperature 98.6 F 12/15/21 14:56 Pulse Rate 80 12/15/21 14:56 Respiratory Rate 20 12/15/21 14:56 Blood Pressure 141/84 H 12/15/21 14:56 Pulse Oximetry 99 12/15/21 14:56 Oxygen Delivery Method 12/15/21 14:56 Course Orders Ordered: ED Orders 12/15/21 15:05 XR chest 1V Stat 12/15/21 15:25 Complete Blood Count AUTO DIFF Stat Comprehensive Metabolic Panel Stat Lipase Stat Magnesium Stat Troponin & CK Cardiac Panel Stat 12/15/21 18:26 CRP [C-Reactive Protein Quant] Stat D Dimer Stat ESR [Erythrocyte Sedimentation Rate] Stat Vital Signs Vital signs: Vital Signs - 8 hr 12/15/21 14:56 Temperature 98.6 F Pulse Rate 80 Respiratory Rate 20 Blood Pressure 141/84 H Pulse Oximetry 99 Oxygen Delivery Method Room Air [facility] [place] - Chest Pain Lab Data Result diagrams: 12/15/21 15:25 12/15/21 15:25 Labs: Lab Results 12/15/21 12/15/21 Range/Units 15:25 15:25 WBC 9.1 (4.5-11.0) X10^3/uL RBC 5.19 (4.5-5.9) X10^6/uL Hgb 16.8 (13.5-17.5) g/dL Hct 46.0 (41-53) % MCV 88.7 (80-100) fL MCH 32.3 (26-34) PG MCHC 36.4 H (30-36) % RDW 12.8 (11.6-14.8) % Plt Count 216 (150-400) X10^3/uL Neut % (Auto) 70.3 (50-75) % Lymph % (Auto) 18.7 L (25-40) % Glenn % (Auto) 7.3 (3-14) % Eos % (Auto) 3.0 (2-4) % Baso % (Auto) 0.7 (0-2) % Neut # (Auto) 6400 (0146-0480) /uL Lymph # (Auto) 1700 (7089-6221) /uL Glenn # (Auto) 700 (0-900) /uL Eos # (Auto) 300 (0-450) /uL Baso # (Auto) 100 (0-100) /uL Sodium 138 (137-145) mmol/L Potassium 3.8 (3.4-5.1) mmol/L Chloride 101 (98-107) mmol/L Carbon Dioxide 22 (22-32) mmol/L BUN 12 (9-20) mg/dL Creatinine 0.92 (0.66-1.25) mg/dL Estimated GFR > 60 (>60) mL/min BUN/Creatinine Ratio 13.0 (6-22) Glucose 96 (70-100) mg/dL Calcium 9.1 (8.4-10.2) mg/dL Magnesium 1.9 (1.6-2.3) mg/dL Total Bilirubin 0.9 (0.2-1.3) mg/dL AST 31 (17-59) IU/L ALT 31 (<50) IU/L Alkaline Phosphatase 76 (38-126) U/L Total Creatine Kinase 95 (55-170) U/L CK-MB (CK-2) TNP CK-MB (CK-2) Rel Index TNP Troponin I < 0.012 (0.01-0.034) ng/mL Total Protein 8.8 H (6.3-8.2) g/dL Albumin 4.9 (3.5-5.0) g/dL Globulin 3.9 (1.7-4.1) g/dL Albumin/Globulin Ratio 1.3 (1.0-2.8) Lipase 217 (23-300) U/L Imaging Data Chest x-ray: Radiologist's Impression: [address] [address] XRay Report Signed Patient: Justino Silver MR#: [id number] : 1985 Acct:[id number] Age/Sex: 36 / M Date of Service: 12/15/21 Loc: ED Accession Number: [id number] ?? Procedure: XR chest 1V Ordering Provider: Loly Devine D.O. PROCEDURE:? XR CHEST 1V ? INDICATIONS:? chest pain ? TECHNIQUE:? One view of the chest was acquired.? ? COMPARISON:? [facility], CR, XR CHEST 1V, 08/10/2021, 13:44. ? FINDINGS:? ? Surgical changes and devices:? None.? ? Lungs and pleura:? Lungs are clear.? No pleural effusions or pneumothorax.? ? Mediastinum:? Mediastinal contours appear normal.? Heart size is normal.? ? Bones and chest wall:? No suspicious bony lesions.? Overlying soft tissues appear unremarkable.? ? IMPRESSION:? No acute cardiopulmonary abnormality. ? ? Dictated by: Mendez Luevano M.D. on 12/15/2021 at 15:51 ? ? Approved by: Mendez Luevano M.D. on 12/15/2021 at 15:53 ? Discharge Plan Departure Prescriptions: No Action fluticasone propionate [Flonase Allergy Relief] 50 mcg/actuation spray,suspension 1 spray intranasal DAILY Qty: 16 0RF Rx Instructions: administer into each nostril lorazepam 1 mg tablet 1 mg PO DAILY PRN (Reason: anxiety) Qty: 10 0RF hydroxyzine HCl 10 mg tablet 10 mg PO TID PRN (Reason: anxiety) Qty: 20 0RF methylprednisolone [Methylpred DP] 4 mg tablets,dose pack See Rx Instructions PO .COMPLEX Qty: 21 0RF Rx Instructions: orally per package directions meclizine 25 mg tablet 25 mg PO DAILY PRN (Reason: dizziness) Qty: 20 0RF omeprazole magnesium [Prilosec OTC] 20 mg tablet,delayed release (DR/EC) 20 mg PO DAILY Qty: 30 0RF Referrals: Elba Dennis MD [Primary Care Provider] -
[2021-12-15 19:16] LABS: D Dimer < 200 ng/mL (<230)
[2021-12-15 19:24] LABS: C-Reactive Protein Quant 0.6 mg/dL (<1.0)
[2021-12-15 19:30] LABS: Erythrocyte Sedimentation Rate 5 MM/HR (0-15)
== END 2021-12-15 20:27 | disposition left against medical advice (07) ==
PROVIDERS: Emergency Medicine; Emergency Provider Emergency Medicine; PCP Dermatology MOHS-Micrographic Surgery
DX: R00.2 Palpitations (principal); R07.9 Chest pain, unspecified; Z86.16 Personal history of COVID-19
CPT/HCPCS: 36415; 71045; 80053; 82550; 83690; 83735; 84484; 85025; 85379; 85651; 86140; 93005; 99283